=== PATIENT | male | born 1950 ===

== ENCOUNTER 2022-04-16 12:13 | Outpatient (REF) | payer MEDICARE, MEDICAID, SELFPAY | END 2022-04-16 12:14 | disposition home or self-care (01) | LOC: HO.SH 12:13 | PROVIDERS: Visit Provider Internal Medicine Geriatric Medicine | DX: H90.A22 Sensorineural hearing loss, unilateral, left ear, with restricted hearing on the contralateral side (principal); H90.A31 Mixed conductive and sensorineural hearing loss, unilateral, right ear with restricted hearing on the contralateral side | CPT/HCPCS: 92557; 92567 ==